=== PATIENT | female | born 1980 | race Two or more races ===

== ENCOUNTER 2020-12-23 07:15 | Inpatient (IN) | payer OTHER ==
[~2020-12-23] VITALS: Ht 167.6 cm; Wt 3.2 kg
[2020-12-23] MEDS ORDERED: PRENATAL PO (08:54)
[2020-12-28] MEDS ORDERED: FAMOTIDINE20 MG (07:55)
[2020-12-28] MEDS ORDERED: PRENATAL + DHA1 EAC1 (07:55)
== END 2020-12-29 10:37 | disposition home or self-care (01) | DRG 785 ==
LOC: LDR 12-26 02:41 → O/R 12-26 02:41 → SURG-SUITE 12-26 02:41 → O/R 12-26 08:31 → SURG-SUITE 12-26 10:00 → LDR 12-30 07:15
PROVIDERS: ADMIT Obstetrics & Gynecology; ATTEND Obstetrics & Gynecology
PROC: 0UB70ZZ Excision of Bilateral Fallopian Tubes, Open Approach (ICD-10-PCS; 2020-12-26)
PROC: 4A1HXFZ Monitoring of Products of Conception, Cardiac Rhythm, External Approach (ICD-10-PCS; 2020-12-26)
PROC: 10D00Z1 Extraction of Products of Conception, Low, Open Approach (ICD-10-PCS; principal; 2020-12-26 09:00)
DX: O65.5 Obstructed labor due to abnormality of maternal pelvic organs (principal); O34.211 Maternal care for low transverse scar from previous cesarean delivery; Z30.2 Encounter for sterilization; Z37.0 Single live birth; Z3A.39 39 weeks gestation of pregnancy